=== PATIENT | male | born 1985 | race Caucasian/White ===

== ENCOUNTER 2019-02-26 14:19 | Emergency (ER) | payer OTHER ==
[~2019-02-26] VITALS: Ht 188 cm; Wt 68.0 kg
[2019-02-26 14:43] VITALS: BP 102/67
== END 2019-02-26 17:10 | disposition home or self-care (01) ==
LOC: ED 16:45
DX: K76.0 Fatty (change of) liver, not elsewhere classified (principal); K70.9 Alcoholic liver disease, unspecified; F10.239 Alcohol dependence with withdrawal, unspecified; F10.229 Alcohol dependence with intoxication, unspecified; Y90.0 Blood alcohol level of less than 20 mg/100 ml
CPT/HCPCS: 36415; 76700; 80053; 83690; 85025; 99284

== ENCOUNTER 2020-10-26 12:56 | Emergency (ER) | payer MEDICAID, OTHER ==
[~2020-10-26] VITALS: Ht 190.5 cm; Wt 70.0 kg
--- NOTE | 2020-10-26 13:33 | NUR ---
PT STATES THAT HE IS SEEING PEOPLE THAT ARE FOLLOWING HIM AND OUT TO GET HIM. STATES HE HAS NOT BEEN ABLE TO SLEEP FOR FOUR DAYS. PT ADMITS TO DRINKING TODAY. PT STATES HE IS HAVING SUICIDAL THOUGHTS AND THAT HE HAD A KNIFE TODAY BUT THAT HE DID NOT HAVE THE GUTS TO USE IT. PT STATES HE HAS FALLEN MULTIPLE TIMES RECENTLY AND THAT HE HURT HIS LEFT HIP WHEN HE FELL ON THE TILE. HE HAS BILATERAL JAW PAIN THAT HE ATTRIBUTES TO BEING CAUSED WHEN HE FELL AND HIT HIS FACE.
--- NOTE | 2020-10-26 13:48 | NUR ---
TO XRAY VIA RISHI
[2020-10-26 14:00] LABS: BASOPHILS % (AUTO) 1 % (0-1); EOSINOPHILS % (AUTO) 3 % (1-7); LYMPHOCYTES % (AUTO) 35 % (22-44); MEAN CORPUSCULAR HEMOGLOBIN 32.6 pg (27.5-34.5); MEAN CORPUSCULAR HGB CONC 35.4 g/dL (33.2-36.2); MONOCYTES % (AUTO) 6 % (2-9); NEUTROPHILS % (AUTO) 54 % (42-75); PLATELET COUNT 366 x10^3/uL (130-400); RED BLOOD COUNT 5.31 x10^6/uL (4.38-5.82); RED CELL DISTRIBUTION WIDTH 13.8 % (9.4-14.8)
[2020-10-26] MEDS ORDERED: LORazepam 1MG TABLET PO ONE (14:00)
--- NOTE | 2020-10-26 14:01 | NUR ---
PATIENT TRANSFERRED FROM X-RAY TO ROOM 2 VIA GURNEY. SUICIDE PRECAUTIONS IN PLACE, PATIENT BELONGINGS TAKEN AND LOCKED IN CABINETSHILPA.
--- NOTE | 2020-10-26 14:01 | NUR ---
TO RM 2 FROM XRAY
[2020-10-26 14:07] LABS: ALBUMIN 4.4 g/dL (3.4-5.0); ANION GAP 9 mmol/L (5-15); CALCIUM 8.6 mg/dL (8.5-10.1); CHLORIDE 105 mmol/L (98-107); CREATININE 1.18 mg/dL (0.7-1.3)
[2020-10-26 14:13] LABS: SALICYLATE LEVEL < 1.7 mg/dL (2.8-20.0)
[2020-10-26] MEDS ORDERED: LORazepam 1MG TABLET ONE (14:21)
--- NOTE | 2020-10-26 14:26 | NUR ---
BELONGINGS PLACED IN LOCKER AND ALL ROOM EQUIPMENT SECURED BEHIND PULLDOWN DOORS. PT MEDICATED WITH ATIVAN NOTED ON MAR
--- NOTE | 2020-10-26 14:54 | NUR ---
FATHER ULYSSES DEGROOT [phone]
--- NOTE | 2020-10-26 15:51 | NUR ---
FOOD TRAY PROVIDED TO PATIENT, SHIL[place], SUICIDE PRECAUTIONS IN PLACE, FREQUENT ROUNDING.
--- NOTE | 2020-10-26 16:34 | NUR ---
PATIENT AMBULATED TO BATHROOM WITH STEADY GAIT, URINE COLLECTED AND SENT TO LAB. PATIENT BACK IN [facility], SUICIDE PRECAUTIONS IN PLACE, SITTER IN LINE OF SIGHT.
[2020-10-26] MEDS ORDERED: ONDANSETRON ODT 4 MG ONE (16:49)
[2020-10-26] MEDS ORDERED: ONDANSETRON ODT 4 MG PO ONE (17:00)
[2020-10-26 17:09] LABS: AMPHETAMINE SCREEN, URINE Negative (Negative); BARBITURATE SCREEN, URINE Positive (Negative); BENZODIAZEPINE SCREEN, URINE Positive (Negative); CANNABINOID SCREEN, URINE Negative (Negative); COCAINE SCREEN, URINE Negative (Negative); METHADONE SCREEN, URINE Negative (Negative); OPIATE SCREEN, URINE Negative (Negative)
--- NOTE | 2020-10-26 17:23 | NUR ---
AT BEDSIDE RE-EVALUATING PT. EXPLAINED TO HIM THAT ONCE HIS BLOOD ALCOHOL LEVEL DECREASES HE WILL BE EVALUATED BY MENTAL HEALTH FOR HIS DEPRESSION. PT STATES HE REMAINS ANXIOUS. TO BE MEDICATED FOR SAME
[2020-10-26] MEDS ORDERED: LORazepam 2 MG/ML, 1ML ONE ×2 (18:30→20:56)
[2020-10-26] MEDS ORDERED: LORazepam 2 MG/ML, 1ML IVPush ONE ×2 (18:30→21:00)
--- NOTE | 2020-10-26 18:33 | NUR ---
PATIENT LAYING IN [place], SUICIDE PRECAUTIONS IN PLACE, SITTER IN LINE OF SIGHT.
--- NOTE | 2020-10-26 18:39 | NUR ---
TASK RN: PT MEDICATED WITH ATIVAN NOTED ON SEP. GENERAL TREMORS NOTED AND PT VOMITING AT THIS TIME.
[2020-10-26] MEDS ORDERED: ONDANSETRON 2MG/ML, 2ML ONE (19:05)
[2020-10-26] MEDS ORDERED: ONDANSETRON 2MG/ML, 2ML IVPush ONE (20:00)
--- NOTE | 2020-10-26 20:01 | NUR ---
PT RESTING IN BED, PT ON MONITOR WITH PT ROOM SI SECURE WITH SITTER AT PT BEDSIDE.
--- NOTE | 2020-10-26 21:42 | NUR ---
PT RESTING IN BED, PT ON MONITOR WITH PT ROOM SI SECURE WITH SITTER AT PT BEDSIDE.
[2020-10-27] MEDS ORDERED: PROMETHAZINE 25 MG/ML, 1ML ONE (01:08)
--- NOTE | 2020-10-27 01:25 | NUR ---
TELE-PSYCH CLEARED PT TO BE DISCHARGED. PT WANTS DETOX PLACEMENT. PT REQUESTED MORE NAUSEA MEDS. PROVIDER NOTIFIED. PT MEDICATED PER SEP
[2020-10-27] MEDS ORDERED: PROMETHAZINE 25 MG/ML, 1ML IM ONE (01:30)
[2020-10-27 02:40] VITALS: BP 130/74
== END 2020-10-27 02:42 | disposition home or self-care (01) ==
LOC: ED 21:55
DX: S70.02XA Contusion of left hip, initial encounter (principal); R45.851 Suicidal ideations; F10.251 Alcohol dependence with alcohol-induced psychotic disorder with hallucinations; Y90.0 Blood alcohol level of less than 20 mg/100 ml; W18.30XA Fall on same level, unspecified, initial encounter; Y93.89 Activity, other specified; Y92.89 Other specified places as the place of occurrence of the external cause; Y99.8 Other external cause status
CPT/HCPCS: 36415; 73502; 80048; 80299; 80307; 80329; 82040; 85025; 96372; 96374; 96375; 96376; 99285; J2060; J2405; J2550; Q0162; G0480